=== PATIENT | female | born 1990 | race Hispanic/Latino ===

== ENCOUNTER 2024-06-11 18:02 | Emergency (ER) | payer SELFPAY ==
[2024-06-11 18:04] VITALS: BP 113/81
[2024-06-11] MEDS: MOTRIN 600 MG PO (18:31)
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
== END 2024-06-11 20:53 | disposition home or self-care (01) ==
LOC: EMR 18:02
PROVIDERS: EMERGENCY PHYSICIAN Emergency Medicine
DX: S63.502A Unspecified sprain of left wrist, initial encounter (principal); S43.402A Unspecified sprain of left shoulder joint, initial encounter; Y04.8XXA Assault by other bodily force, initial encounter
CPT/HCPCS: 99283; 73030; 73060; 73090; 73130

== ENCOUNTER 2025-04-13 08:42 | Emergency (ER) | payer OTHER, SELFPAY ==
[2025-04-13 08:47] VITALS: BP 112/76
[2025-04-13 08:55] VITALS: BP 105/77
[2025-04-13 09:00] VITALS: BP 104/72
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
[2025-04-13 10:00] VITALS: BP 91/60
[2025-04-13] MEDS: NSS 1000 IV (10:39)
[2025-04-13 10:47] LABS: Hematocrit 31.0 % (37.0-47.0); Hemoglobin 11.1 g/dL (12.0-16.0); Mean Corp Hgb Conc. 35.8 g/dL (33.0-37.0); Mean Corpuscular Volume 90.4 fL (81.0-99.0); Nucleated Red Blood Cells % 0 %; Platelet Count 146 10^3/uL (130-400); Red Cell Dist. Width 12.3 % (11.5-14.5)
[2025-04-13 11:00] VITALS: BP 99/57
[2025-04-13 11:24] LABS: ALT (SGPT) 10 U/L (0-35); AST (SGOT) 14 U/L (14-36); Albumin 4.0 g/dl (3.5-5.0); Alkaline Phosphatase 79 U/L (38-126); Blood Urea Nitrogen 9 mg/dl (7-17); Calcium 9.0 mg/dl (8.4-10.2); Carbon Dioxide 26 mmol/L (22-30); Chloride 106 mmol/L (98-107); Glucose 98 mg/dl (70-99); HCG, Serum Qualitative Screen Negative; Potassium 4.1 mmol/L (3.5-5.1); Sodium 137 mmol/L (135-145); Total Protein 6.8 g/dl (6.3-8.2); eGFR > 60.00
[2025-04-13 14:09] VITALS: BP 110/70
== END 2025-04-13 14:31 | disposition home or self-care (01) ==
LOC: EMR 08:42
PROVIDERS: Physician Assistant; EMERGENCY PHYSICIAN Emergency Medicine
DX: N93.9 Abnormal uterine and vaginal bleeding, unspecified (principal); D64.9 Anemia, unspecified
CPT/HCPCS: 96360; 99284; 76830; 76856; 80053; 84703; 85025; 86850; 86900; 86901